=== PATIENT | male | born 1975 | race American Indian/Alaskan Native ===

== ENCOUNTER 2017-06-08 18:48 | Observation (INO) | payer MEDICAID ==
[2017-06-08 18:54] VITALS: BMI 31.0
--- NOTE | 2017-06-08 19:01 | ED PDOC ---
Arrival/HPI - General Time Seen by Provider: 06/08/17 18:49 Historian: Patient - History of Present Illness Narrative History of Present Illness (Text): 06/08/17 18:57 A 42 year old male smoker presents to the emergency department complaining of chest pain for 1 week. Patient reports experiencing intermittent chest pain with palpations since last week. This lasted until 2 days ago, now chest pain is steady. Patient states he has been stressed out recently due to wedding planning. Patient denies of any diaphoresis, vomiting, dizziness, or any other complaints. No PMD Time/Duration: 1 week Symptom Onset: Gradual Symptom Course: Intermittent Associated Symptoms (Text): 06/08/17 19:36 Intermittent chest pain for approximately one week. There've been palpitations. No dyspnea. No diaphoresis. No nausea or vomiting. No dizziness or lightheadedness. The pain is become steady over the last 2 days. No radiation. Patient ran out of his blood pressure medication 1 week ago. Past Medical History - Provider Review Nursing Documentation Reviewed: Yes Family/Social History - Physician Review Nursing Documentation Reviewed: Yes Family/Social History: No Known Family HX Smoking Status: Light Smoker < 10 Cigarettes Daily Hx Alcohol Use: Yes Frequency of alcohol use: Socially Hx Substance Use: No Allergies/Home Meds Allergies/Adverse Reactions: Allergies No Known Allergies Allergy (Verified 06/08/17 18:54) Home Medications: Home Meds Medication Instructions Recorded Confirmed Enalapril/Hydrochlorothiazide 10 mg PO DAILY 06/08/17 06/08/17 [Enalapril-Hctz 10-25 mg Tablet] amLODIPine [Norvasc] 0 mg PO DAILY 06/08/17 06/08/17 Review of Systems - Physician Review All systems were reviewed & negative as marked: Yes - Review of Systems Cardiovascular: Chest Pain, Palpitations Gastrointestinal: absent: Abdominal Pain, Nausea, Vomiting Neurological: absent: Dizziness Endocrine: absent: Diaphoresis Physical Exam Vital Signs Reviewed: Yes Vital Signs Pulse Resp BP Pulse Ox 06/08/17 19:02 77 18 157/108 H 100 Temperature: Afebrile Blood Pressure: Hypertensive Pulse: Regular Respiratory Rate: Normal Appearance: Positive for: Well-Appearing Pain Distress: None Mental Status: Positive for: Alert and Oriented X 3 - Systems Exam Head: Present: Atraumatic, Normocephalic Pupils: Present: PERRL Extroacular Muscles: Present: EOMI Conjunctiva: Present: Normal Mouth: Present: Moist Mucous Membranes Pharnyx: No: ERYTHEMA, EXUDATE, TONSILS ENLARGED Neck: Present: Normal Range of Motion Respiratory/Chest: Present: Clear to Auscultation, Good Air Exchange. No: Respiratory Distress, Accessory Muscle Use, Tender to Palpation Cardiovascular: Present: Regular Rate and Rhythm, Normal S1, S2. No: Murmurs Abdomen: Present: Normal Bowel Sounds. No: Tenderness, Distention, Peritoneal Signs Back: Present: Normal Inspection Upper Extremity: Present: Normal Inspection. No: Cyanosis, Edema Lower Extremity: Present: Normal Inspection. No: Edema Neurological: Present: GCS=15, CN II-XII Intact, Speech Normal, Motor Func Grossly Intact Skin: Present: Warm, Dry, Normal Color. No: Rashes Psychiatric: Present: Alert, Oriented x 3, Normal Insight, Normal Concentration Medical Decision Making ED Course and Treatment: 06/08/17 19:04 Impression: 42 year old male with chest pain. Normal physical exam. Plan: -- EKG -- Chest X-ray -- Labs -- Urinalysis -- Aspirin -- Nitrostat -- Reassess and disposition Progress Notes: 06/08/17 19:37 EKG shows normal sinus rhythm rate approximately [address] or T-wave changes 06/08/17 19:54 Discussed with the medical research tech. Patient will be admitted to telemetry on the hospitalist service. - Lab Interpretations Lab Results: 06/08/17 19:00 06/08/17 19:00 Lab Results 06/08/17 19:00: Sodium 141, Potassium 3.9, Chloride 106, Carbon Dioxide 26, Anion Gap 13, BUN 14, Creatinine 1.0, Est GFR ( Amer) > 60, Est GFR (Non- Af Amer) > 60, Random Glucose 84, Calcium 9.7, Magnesium 1.9, Total Bilirubin 0.7, AST 49, ALT 47, Alkaline Phosphatase 70, Lactate Dehydrogenase 456, Total Creatine Kinase 405 H, CK-MB (CK-2) 3.7 H, CK-MB (CK-2) % 0.9 L, Troponin I 0.02 , Total Protein 7.5, Albumin 4.4, Globulin 3.1, Albumin/Globulin Ratio 1.4 06/08/17 19:00: WBC 7.0, RBC 3.96, Hgb 13.0 L, Hct 37.6 L, MCV 94.9, MCH 32.8, MCHC 34.6, RDW 13.9, Plt Count 270, MPV 9.4, Gran % 70.6 H, Lymph % (Auto) 21.6 L, Zapata % (Auto) 5.9, Eos % (Auto) 1.6, Baso % (Auto) 0.3, Gran # 4.94, Lymph # 1.5, Zapata # 0.4, Eos # 0.1, Baso # 0.02 I have reviewed the lab results: Yes - RAD Interpretation Radiology Orders: 06/08/17 18:56 CHEST PORTABLE [RAD] Stat Chest 1 view shows no infiltrate effusion or cardiomegaly Public Health Director: ED Physician - Medication Orders Current Medication Orders: Discontinued Medications Aspirin (Aspirin) 325 mg PO STAT STA Stop: 06/08/17 18:57 Last Admin: 06/08/17 19:08 Dose: 325 mg Nitroglycerin (Nitrostat Sl Tab) 0.4 mg SL STAT STA Stop: 06/08/17 18:57 Last Admin: 06/08/17 19:09 Dose: 0.4 mg Nitroglycerin (Nitro-Bid 2% Oint) 1 ea TOP STAT STA Stop: 06/08/17 19:39 Last Admin: 06/08/17 19:43 Dose: 1 ea - Scribe Statement The provider has reviewed the documentation as recorded by the Sravan Metzger Provider Scribe Attestation: All medical record entries made by the Shainaibminerva were at my direction and personally dictated by me. I have reviewed the chart and agree that the record accurately reflects my personal performance of the history, physical exam, medical decision making, and the department course for this patient. I have also personally directed, reviewed, and agree with the discharge instructions and disposition. Disposition/Present on Arrival - Present on Arrival Any Indicators Present on Arrival: No History of DVT/PE: No History of Uncontrolled Diabetes: No Urinary Catheter: No History of Decub. Ulcer: No - Disposition Have Diagnosis and Disposition been Completed?: Yes Diagnosis: Chest pain, Hypertension Disposition: HOSPITALIZED Disposition Time: 19:55 Patient Plan: Observation, Telemetry Patient Problems: Current Active Problems Problem Status Onset Chest pain Acute Hypertension Acute Condition: GOOD Discharge Instructions (ExitCare): Chest Pain (ED) Referrals: Lalita Lee MD [Primary Care Provider] - Follow up with primary
[2017-06-08 19:30] LABS: ALB/GLOB RATIO 1.4 (1.1-1.8); ALKALINE PHOSPHATASE 70 U/L (38-126); ALT/SGPT 47 U/L (7-56); AST/SGOT 49 U/L (17-59); BILIRUBIN,TOTAL 0.7 mg/dL (0.2-1.3); BLOOD UREA NITROGEN 14 mg/dL (7-21); CALCIUM 9.7 mg/dL (8.4-10.5); CARBON DIOXIDE 26 mmol/L (21-33); CHLORIDE 106 mmol/L (98-107); GFR AFRICAN-AMERICAN > 60; GLUCOSE,RANDOM 84 mg/dL (70-110); MAGNESIUM 1.9 mg/dL (1.7-2.2); POTASSIUM 3.9 mmol/L (3.6-5.0); SODIUM 141 mmol/L (132-148); TOTAL PROTEIN 7.5 g/dL (5.8-8.3)
[2017-06-08 19:34] LABS: BASO # 0.02 K/mm3 (0.0-2.0); BASO % 0.3 % (0.0-3.0); EOS # 0.1 (0.0-0.7); EOS % 1.6 % (1.5-5.0); GRAN # 4.94 (1.4-6.5); GRAN % 70.6 % (50.0-68.0); HEMATOCRIT 37.6 % (42.0-52.0); LYMPH # 1.5 (1.2-3.4); LYMPH % 21.6 % (22.0-35.0); MEAN CELL VOLUME 94.9 fl (80.0-105.0); MEAN CORPUSCULAR HEMOGLOBIN 32.8 pg (25.0-35.0); MEAN CORPUSCULAR HGB CONC 34.6 g/dl (31.0-37.0); MEAN PLATELET VOLUME 9.4 fl (7.0-11.0); MONO # 0.4 (0.1-0.6); MONO % 5.9 % (1.0-6.0); RED CELL DISTRIBUTION WIDTH 13.9 % (11.5-14.5)
[2017-06-08] MEDS ORDERED: Nitroglycerin 2% Ointment Foilpak UD TOP STA (19:38)
[2017-06-08 19:41] LABS: TROPONIN I 0.02 ng/mL
[2017-06-08 20:05] LABS: PH,URINE 5.5 (4.7-8.0); URINE BILIRUBIN NEGATIVE (NEGATIVE); URINE BLOOD TRACE-INTACT (NEGATIVE); URINE GLUCOSE (UA) NEGATIVE (NEGATIVE); URINE KETONE NEGATIVE (NEGATIVE); URINE LEUKOCYTE ESTERASE NEGATIVE Leu/uL (NEGATIVE); URINE PROTEIN NEGATIVE mg/dL (<30 mg/dL); URINE UROBILINOGEN 0.2 E.U./dL (<1 E.U./dL)
[2017-06-08 20:14] LABS: URINE APPEARANCE CLEAR (CLEAR); URINE COLOR YELLOW (YELLOW)
[2017-06-08 20:16] LABS: URINE BACTERIA FEW (NEG); URINE WBC 0 - 2 /hpf (0-6)
[2017-06-08] MEDS ORDERED: Nitroglycerin 0.2 mg/hr Top Patch TD PRN (21:40)
[2017-06-08] MEDS ORDERED: Morphine 2 mg/ml ISec IVP STA (21:49)
--- NOTE | 2017-06-08 22:35 | CP.PCM.HP ---
<VARSHA DRISCOLL - Last Filed: 06/09/17 05:48> History of Present Illness - History of Present Illness History of Present Illness: Varsha Driscoll, PGY1, H&P for Dr. Morse: CC: chest pain HPI: 42M with PMH HTN, presents for left sided chest pain x 1 week. It started at rest, lasting few mins at a time, with associated fluttering in chest, denies radiation, sob, fainting/dizziness/syncope, n/v, abdominal pain, diaphoresis, weakness. Pt had a previous [place] of such cp, [place] [facility] [place] 24hr holter monitor were normal. In ED, pt afebrile , hypertensive 157/108, trop negx1, ck mb 3.7, EKG shows HR 75, NSR, possible L atrial enlargement. Received NTGx2, ASA 325 mgx1, morphine 2 mg x1. Currently, pt denies any cp, sob, feeling better since arrival. PMD: Dr. Gregory Canales in [place] PMH: HTN [place]v [place] [facility] [place] for chest pain, normal stress test, 24 hor holter monitor. DX with HTN. No cardiac cath done at the time. PSH: Left lower leg laser vein removal (for spider veins), cholecystectomy (2006 ) All: NKA FH: Mother, HTN, CAD, DM, glaucoma CVA, HTN run in family SH: lives with daughter, single parent, at home. umemployed, in a legal dangelo with previous employer, Denies alcohol use currently, last used 01/2017- drinks a glass wine daily prior to that); occasional tobacco user - previously used to smoke 1/2 ppd x 6-7 years. Previous marijuana user. Denies drug use currently. Meds: amlodipine 10 mg PO daily, Enalapril-HCTZ 10-25 mg PO daily Present on Admission - Present on Admission Any Indicators Present on Admission: No History of DVT/PE: No History of Uncontrolled Diabetes: No Urinary Catheter: No Decubitus Ulcer Present: No History Surgical Site Infection Following: None Review of Systems - Review of Systems All systems: reviewed and no additional remarkable complaints except Review of Systems: as per HPI Past Patient History - Infectious Disease Hx of Infectious Diseases: None - Past Social History Smoking Status: Light Smoker < 10 Cigarettes Daily - CARDIAC Hx Cardiac Disorders: Yes Hx Hypertension: Yes - PULMONARY Hx Respiratory Disorders: No - NEUROLOGICAL Hx Neurological Disorder: No - HEENT Hx HEENT Problems: No - RENAL Hx Chronic Kidney Disease: No - ENDOCRINE/METABOLIC Hx Endocrine Disorders: No - HEMATOLOGICAL/ONCOLOGICAL Hx Blood Disorders: No - INTEGUMENTARY Hx Dermatological Problems: No - MUSCULOSKELETAL/RHEUMATOLOGICAL Hx Musculoskeletal Disorders: No - GASTROINTESTINAL Hx Gastrointestinal Disorders: No - GENITOURINARY/GYNECOLOGICAL Hx Genitourinary Disorders: No - PSYCHIATRIC Hx Substance Use: No - SURGICAL HISTORY Hx Surgeries: Yes Hx Cholecystectomy: Yes Other/Comment: veins stripped in R leg - ANESTHESIA Hx Anesthesia: Yes Hx Anesthesia Reactions: No Meds Allergies/Adverse Reactions: Allergies Allergy/AdvReac Type Severity Reaction Status Date / Time No Known Allergies Allergy Verified 06/08/17 18:54 Physical Exam - Constitutional Appears: No Acute Distress, Older Than Stated Age - Head Exam Head Exam: ATRAUMATIC, NORMOCEPHALIC - Eye Exam Eye Exam: EOMI, PERRL. absent: Conjunctival injection, Scleral icterus Pupil Exam: NORMAL ACCOMODATION, PERRL. absent: Irregular, Unequal - ENT Exam ENT Exam: Mucous Membranes Moist - Neck Exam Neck exam: Positive for: Normal Inspection. Negative for: Lymphadenopathy, Thyromegaly - Respiratory Exam Respiratory Exam: Clear to Auscultation Bilateral, NORMAL BREATHING PATTERN. absent: Accessory Muscle Use, Rales, Rhonchi, Wheezes - Cardiovascular Exam Cardiovascular Exam: RRR, +S1, +S2. absent: Bradycardia, Tachycardia, Systolic Murmur - GI/Abdominal Exam GI & Abdominal Exam: Normal Bowel Sounds, Soft. absent: Guarding, Tenderness - Extremities Exam Extremities exam: Positive for: normal inspection, pedal pulses present. Negative for: calf tenderness, pedal edema - Back Exam Back exam: absent: CVA tenderness (L), CVA tenderness (R) - Neurological Exam Neurological exam: Alert, Oriented x3 - Psychiatric Exam Psychiatric exam: Normal Affect, Normal Mood - Skin Skin Exam: Dry, Warm Results - Vital Signs Recent Vital Signs: Last Vital Signs Temp 98.0 F 06/08/17 20:14 Pulse 72 06/08/17 21:31 Resp 16 06/08/17 21:31 BP 157/90 H 06/08/17 21:31 Pulse Ox 99 06/08/17 21:31 - Labs Result Diagrams: 06/09/17 03:38 06/09/17 03:38 Assessment & Plan - Assessment and Plan (Free Text) Assessment: 42M with PMH HTN, admitted for chest pain, r.o ACS, and arrythmia monitoring. Plan: Chest pain, rule out ACS: - Initial trop neg, CK mb 3.7 - EKG shows HR 75, NSR, Possible left atrial enlargement. - f/u serial trops with EKG - F/u lipid panel - start NTG patch, ASA 81 mg PO daily, Lipitor, Tyneol prn pain - C/w home anti HTN med, hold if SBP<120 - F/u cardio c/s Dr Padron recs - Start heart healthy diet Fluttering: - Rule out afib vs any other cardiac arrhythmia - On Tele monitoring x at least 24h - F/u cardio recs Hx of HTN: - C/w home med amlodipine 10 mg PO daily and hctz 12.5 mg PO daily Discussed with attending Varsha Driscoll PGY1 - Date & Time Date: 06/09/17 Time: 05:57 <Sy Morse - Last Filed: 06/10/17 08:52> Results - Vital Signs Recent Vital Signs: Last Vital Signs Temp 98.6 F 06/09/17 05:56 Pulse 54 L 06/09/17 09:55 Resp 22 06/09/17 05:56 BP 133/80 06/09/17 12:00 Pulse Ox 100 06/09/17 05:56 - Labs Result Diagrams: 06/09/17 03:38 06/09/17 03:38 Labs: Laboratory Results - last 24 hr 06/09/17 06/09/17 11:20 11:20 Lactate Dehydrogenase 402 Total Creatine Kinase 311 H CK-MB (CK-2) 2.5 CK-MB (CK-2) % Cancelled Troponin I 0.03 Triglycerides 81 Cholesterol 150 LDL Cholesterol Direct 86 HDL Cholesterol 43 TSH 3rd Generation 0.80 Attending/Attestation - Attestation I have personally seen and examined this patient.: Yes I have fully participated in the care of the patient.: Yes I have reviewed all pertinent clinical information: Yes Notes (Text): 06/10/17 08:51 Patient was seen when he was in -02. Agree with history, physical examination , assessment and plan.
[2017-06-08 22:53] VITALS: O2SAT 100
[2017-06-09 03:46] LABS: HEMATOCRIT 36.5 % (42.0-52.0); MEAN CELL VOLUME 95.3 fl (80.0-105.0); MEAN CORPUSCULAR HEMOGLOBIN 32.4 pg (25.0-35.0); WHITE BLOOD COUNT 5.9 10^3/ul (4.5-11.0)
[2017-06-09 03:47] LABS: BASO % 0.3 % (0.0-3.0); EOS % 4.5 % (1.5-5.0); GRAN # 3.13 (1.4-6.5); GRAN % 52.8 % (50.0-68.0); MEAN PLATELET VOLUME 8.6 fl (7.0-11.0); MONO # 0.5 (0.1-0.6); MONO % 8.4 % (1.0-6.0)
[2017-06-09 03:48] LABS: BASO # 0.02 K/mm3 (0.0-2.0); EOS # 0.3 (0.0-0.7)
[2017-06-09 03:54] LABS: ALB/GLOB RATIO 1.2 (1.1-1.8); ALKALINE PHOSPHATASE 56 U/L (38-126); ALT/SGPT 44 U/L (7-56); AST/SGOT 37 U/L (17-59); BILIRUBIN,TOTAL 0.5 mg/dL (0.2-1.3); BLOOD UREA NITROGEN 13 mg/dL (7-21); CALCIUM 9.1 mg/dL (8.4-10.5); CARBON DIOXIDE 26 mmol/L (21-33); CHLORIDE 108 mmol/L (98-107); CHOLESTEROL 140 mg/dL (130-200); GFR AFRICAN-AMERICAN > 60; GLUCOSE,RANDOM 105 mg/dL (70-110); MAGNESIUM 1.9 mg/dL (1.7-2.2); POTASSIUM 3.7 mmol/L (3.6-5.0); SODIUM 141 mmol/L (132-148); TOTAL PROTEIN 6.5 g/dL (5.8-8.3)
[2017-06-09 04:05] LABS: TROPONIN I 0.03 ng/mL
[2017-06-09 05:57] VITALS: RESP 22; TEMP 98.6
--- NOTE | 2017-06-09 08:17 | RAD ---
HISTORY: cp COMPARISON: Chest x-ray performed 06/08/17 TECHNIQUE: Chest, one view. FINDINGS: LUNGS: Mild right patchy opacity at the right lung base may reflect atelectasis or developing pneumonia. Linear atelectasis, right upper lobe. Please note that chest x-ray has limited sensitivity for the detection of pulmonary masses. PLEURA: No significant pleural effusion identified. No definite pneumothorax . CARDIOVASCULAR: Heart size appears within normal limits. Tortuous aorta. OSSEOUS STRUCTURES: No acute osseous abnormality identified. VISUALIZED UPPER ABDOMEN: Unremarkable. OTHER FINDINGS: None. IMPRESSION: Mild right patchy opacity at the right lung base may reflect atelectasis or developing pneumonia. Linear atelectasis, right upper lobe. Study has been marked for PA review.
--- NOTE | 2017-06-09 08:58 | CARD ---
APPROVED REPORT EKG Measurement Heart [id number] <Conclusion> Normal sinus rhythm Possible Left atrial enlargement Borderline ECG
[2017-06-09] MEDS: Enoxaparin 30 mg Syringe SC SCH ×2 (09:56→13:03)
--- NOTE | 2017-06-09 09:59 | CP.PCM.DIS ---
<Dana Rosario - Last Filed: 06/09/17 13:53> Provider - Provider Date of Admission: 06/08/17 20:58 Attending physician: Brittney Fitzgerald MD Primary care physician: Lalita Lee Time Spent in preparation of Discharge (in minutes): 40 Hospital Course - Lab Results Lab Results: Most Recent Lab Values WBC 5.9 10^3/ul (4.5-11.0) 06/09/17 03:38 RBC 3.83 10^6/uL (3.5-6.1) 06/09/17 03:38 Hgb 12.4 g/dL (14.0-18.0) L 06/09/17 03:38 Hct 36.5 % (42.0-52.0) L 06/09/17 03:38 MCV 95.3 fl (80.0-105.0) 06/09/17 03:38 MCH 32.4 pg (25.0-35.0) 06/09/17 03:38 MCHC 34.0 g/dl (31.0-37.0) 06/09/17 03:38 RDW 14.0 % (11.5-14.5) 06/09/17 03:38 Plt Count 224 10^3/uL (120.0-450.0) 06/09/17 03:38 MPV 8.6 fl (7.0-11.0) 06/09/17 03:38 Gran % 52.8 % (50.0-68.0) 06/09/17 03:38 Lymph % (Auto) 34.0 % (22.0-35.0) 06/09/17 03:38 [place] % (Auto) 8.4 % (1.0-6.0) H 06/09/17 03:38 Eos % (Auto) 4.5 % (1.5-5.0) 06/09/17 03:38 Baso % (Auto) 0.3 % (0.0-3.0) 06/09/17 03:38 Gran # 3.13 (1.4-6.5) 06/09/17 03:38 Lymph # 2.0 (1.2-3.4) 06/09/17 03:38 [place] # 0.5 (0.1-0.6) 06/09/17 03:38 Eos # 0.3 (0.0-0.7) 06/09/17 03:38 Baso # 0.02 K/mm3 (0.0-2.0) 06/09/17 03:38 Sodium 141 mmol/L (132-148) 06/09/17 03:38 Potassium 3.7 mmol/L (3.6-5.0) 06/09/17 03:38 Chloride 108 mmol/L (98-107) H 06/09/17 03:38 Carbon Dioxide 26 mmol/L (21-33) 06/09/17 03:38 Anion Gap 11 (10-20) 06/09/17 03:38 BUN 13 mg/dL (7-21) 06/09/17 03:38 Creatinine 1.0 mg/dL (0.5-1.4) 06/09/17 03:38 Est GFR ( Amer) > 60 06/09/17 03:38 Est GFR (Non-Af Amer) > 60 06/09/17 03:38 Random Glucose 105 mg/dL (70-110) 06/09/17 03:38 Calcium 9.1 mg/dL (8.4-10.5) 06/09/17 03:38 Phosphorus 4.0 mg/dL (2.5-4.5) 06/09/17 03:38 Magnesium 1.9 mg/dL (1.7-2.2) 06/09/17 03:38 Total Bilirubin 0.5 mg/dL (0.2-1.3) 06/09/17 03:38 AST 37 U/L (17-59) 06/09/17 03:38 ALT 44 U/L (7-56) 06/09/17 03:38 Alkaline Phosphatase 56 U/L (38-126) 06/09/17 03:38 Lactate Dehydrogenase 362 U/L (333-699) 06/09/17 03:38 Total Creatine Kinase 387 U/L (35-230) H 06/09/17 03:38 CK-MB (CK-2) 3.1 ng/mL (0.0-3.6) 06/09/17 03:38 CK-MB (CK-2) % Cancelled 06/08/17 19:00 Troponin I 0.03 ng/mL D 06/09/17 03:38 Total Protein 6.5 g/dL (5.8-8.3) 06/09/17 03:38 Albumin 3.6 g/dL (3.0-4.8) 06/09/17 03:38 Globulin 2.9 gm/dL 06/09/17 03:38 Albumin/Globulin Ratio 1.2 (1.1-1.8) 06/09/17 03:38 Triglycerides 64 mg/dL (35-160) 06/09/17 03:38 Cholesterol 140 mg/dL (130-200) 06/09/17 03:38 LDL Cholesterol Direct 84 mg/dL (0-129) 06/09/17 03:38 HDL Cholesterol 41 mg/dL (29-60) 06/09/17 03:38 Urine Color Yellow (YELLOW) 06/08/17 19:56 Urine Appearance Clear (CLEAR) 06/08/17 19:56 Urine pH 5.5 (4.7-8.0) 06/08/17 19:56 Ur Specific [place] 1.015 (1.005-1.035) 06/08/17 19:56 Urine Protein Negative mg/dL (<30 mg/dL) 06/08/17 19:56 Urine Glucose (UA) Negative mg/dL (NEGATIVE) 06/08/17 19:56 Urine Ketones Negative mg/dL (NEGATIVE) 06/08/17 19:56 Urine Blood Trace-intact (NEGATIVE) H 06/08/17 19:56 Urine Nitrate Negative (NEGATIVE) 06/08/17 19:56 Urine Bilirubin Negative (NEGATIVE) 06/08/17 19:56 Urine Urobilinogen 0.2 E.U./dL (<1 E.U./dL) 06/08/17 19:56 Ur Leukocyte Esterase Negative [place]/uL (NEGATIVE) 06/08/17 19:56 Urine RBC 1 - 3 /hpf (0-2) 06/08/17 19:56 Urine WBC 0 - 2 /hpf (0-6) 06/08/17 19:56 Ur Epithelial Cells None /hpf (0-5) 06/08/17 19:56 Urine Bacteria Few (NEG) 06/08/17 19:56 Urine Opiates Screen Negative (NEGATIVE) 06/08/17 19:56 Urine Methadone Screen Negative (NEGATIVE) 06/08/17 19:56 Ur Barbiturates Screen Negative (NEGATIVE) 06/08/17 19:56 Ur Phencyclidine Scrn Negative (NEGATIVE) 06/08/17 19:56 Ur Amphetamines Screen Negative (NEGATIVE) 06/08/17 19:56 U Benzodiazepines Scrn Negative (NEGATIVE) 06/08/17 19:56 U Oth Cocaine Metabols Negative (NEGATIVE) 06/08/17 19:56 U Cannabinoids Screen Negative (NEGATIVE) 06/08/17 19:56 - Hospital Course Hospital Course: 42M with PMHx of HTN, presents for left sided chest pain x 1 week. It started at rest, lasting a few mins at a time, with associated fluttering in chest in the ED. Patient was admitted for observation to rule out ACS. Pt afebrile, trop negx3, ck mb 3.1, EKG shows HR 75, NSR, possible L atrial enlargement. TSH was normal. Received NTGx2, ASA 325 mgx1, morphine 2 mg x1. Patients symptoms have resolved. Echo shows normal LV size and systolic function (EF of 59%). CXR read mild right patchy opacity at the right lung base may reflect atelectasis or developing pneumonia. Linear atelectasis, right upper lobe. Patient will be sent home with his home prescribed medications of Norvasc and enalapril/HCTZ. Patient has been advised to stop smoking, follow up with his PMD, schedule a cardiology appointment for outpatient stress test and to continue his BP medications. Patient is agreeable to plan and medications. Patient has been seen, reviewed, and examined with Attending. Dana Rosario PGY-1 - Date & Time of H&P Date of H&P: 06/09/17 Time of H&P: 12:00 Discharge Exam - Head Exam Head Exam: ATRAUMATIC, NORMOCEPHALIC - Eye Exam Eye Exam: EOMI, Normal appearance - ENT Exam ENT Exam: Mucous Membranes Moist - Respiratory Exam Respiratory Exam: Clear to PA & Lateral, NORMAL BREATHING PATTERN, UNREMARKABLE - Cardiovascular Exam Cardiovascular Exam: RRR, +S1, +S2 - GI/Abdominal Exam GI & Abdominal Exam: Normal Bowel Sounds, Soft. absent: Organomegaly, Tenderness - Neurological Exam Neurological exam: Oriented x3 - Psychiatric Exam Psychiatric exam: Normal Affect, Normal Mood - Skin Skin Exam: Dry, Intact, Normal Color, Warm Discharge Plan - Discharge Medications Prescriptions: amLODIPine [Norvasc] 5 mg PO DAILY #30 Enalapril/Hydrochlorothiazide [Enalapril-Hctz 10-25 mg Tablet] 1 tab PO DAILY # 30 - Follow Up Plan Condition: GOOD Disposition: HOME/ ROUTINE Instructions: Chest Pain (DC), Chest Pain (GEN), Heart Healthy Diet (DC), Heart Healthy Diet (GEN) Additional Instructions: Please continue to take our blood pressure medications daily Follow up with primary physician in 1-2 weeks Schedule appointment with Tow Truck Driver for outpatient stress test within 1 week. Please work on decreasing smoking, and eventually quitting. Referrals: Lalita Lee MD [Primary Care Provider] - <Todd OWEN,[email or web address] - Last Filed: 06/09/17 15:38> Provider - Provider Date of Admission: 06/08/17 20:58 Attending physician: Brittney Fitzgerald MD Primary care physician: [facility] Course - Lab Results Lab Results: Most Recent Lab Values WBC 5.9 10^3/ul (4.5-11.0) 06/09/17 03:38 RBC 3.83 10^6/uL (3.5-6.1) 06/09/17 03:38 Hgb 12.4 g/dL (14.0-18.0) L 06/09/17 03:38 Hct 36.5 % (42.0-52.0) L 06/09/17 03:38 MCV 95.3 fl (80.0-105.0) 06/09/17 03:38 MCH 32.4 pg (25.0-35.0) 06/09/17 03:38 MCHC 34.0 g/dl (31.0-37.0) 06/09/17 03:38 RDW 14.0 % (11.5-14.5) 06/09/17 03:38 Plt Count 224 10^3/uL (120.0-450.0) 06/09/17 03:38 MPV 8.6 fl (7.0-11.0) 06/09/17 03:38 Gran % 52.8 % (50.0-68.0) 06/09/17 03:38 Lymph % (Auto) 34.0 % (22.0-35.0) 06/09/17 03:38 [place] % (Auto) 8.4 % (1.0-6.0) H 06/09/17 03:38 Eos % (Auto) 4.5 % (1.5-5.0) 06/09/17 03:38 Baso % (Auto) 0.3 % (0.0-3.0) 06/09/17 03:38 Gran # 3.13 (1.4-6.5) 06/09/17 03:38 Lymph # 2.0 (1.2-3.4) 06/09/17 03:38 [place] # 0.5 (0.1-0.6) 06/09/17 03:38 Eos # 0.3 (0.0-0.7) 06/09/17 03:38 Baso # 0.02 K/mm3 (0.0-2.0) 06/09/17 03:38 Sodium 141 mmol/L (132-148) 06/09/17 03:38 Potassium 3.7 mmol/L (3.6-5.0) 06/09/17 03:38 Chloride 108 mmol/L (98-107) H 06/09/17 03:38 Carbon Dioxide 26 mmol/L (21-33) 06/09/17 03:38 Anion Gap 11 (10-20) 06/09/17 03:38 BUN 13 mg/dL (7-21) 06/09/17 03:38 Creatinine 1.0 mg/dL (0.5-1.4) 06/09/17 03:38 Est GFR ( Amer) > 60 06/09/17 03:38 Est GFR (Non-Af Amer) > 60 06/09/17 03:38 Random Glucose 105 mg/dL (70-110) 06/09/17 03:38 Calcium 9.1 mg/dL (8.4-10.5) 06/09/17 03:38 Phosphorus 4.0 mg/dL (2.5-4.5) 06/09/17 03:38 Magnesium 1.9 mg/dL (1.7-2.2) 06/09/17 03:38 Total Bilirubin 0.5 mg/dL (0.2-1.3) 06/09/17 03:38 AST 37 U/L (17-59) 06/09/17 03:38 ALT 44 U/L (7-56) 06/09/17 03:38 Alkaline Phosphatase 56 U/L (38-126) 06/09/17 03:38 Lactate Dehydrogenase 402 U/L (333-699) 06/09/17 11:20 Total Creatine Kinase 311 U/L (35-230) H 06/09/17 11:20 CK-MB (CK-2) 2.5 ng/mL (0.0-3.6) 06/09/17 11:20 CK-MB (CK-2) % Cancelled 06/08/17 19:00 Troponin I 0.03 ng/mL 06/09/17 11:20 Total Protein 6.5 g/dL (5.8-8.3) 06/09/17 03:38 Albumin 3.6 g/dL (3.0-4.8) 06/09/17 03:38 Globulin 2.9 gm/dL 06/09/17 03:38 Albumin/Globulin Ratio 1.2 (1.1-1.8) 06/09/17 03:38 Triglycerides 81 mg/dL (35-160) 06/09/17 11:20 Cholesterol 150 mg/dL (130-200) 06/09/17 11:20 LDL Cholesterol Direct 86 mg/dL (0-129) 06/09/17 11:20 HDL Cholesterol 43 mg/dL (29-60) 06/09/17 11:20 TSH 3rd Generation 0.80 mIU/mL (0.46-4.68) 06/09/17 11:20 Urine Color Yellow (YELLOW) 06/08/17 19:56 Urine Appearance Clear (CLEAR) 06/08/17 19:56 Urine pH 5.5 (4.7-8.0) 06/08/17 19:56 Ur Specific [place] 1.015 (1.005-1.035) 06/08/17 19:56 Urine Protein Negative mg/dL (<30 mg/dL) 06/08/17 19:56 Urine Glucose (UA) Negative mg/dL (NEGATIVE) 06/08/17 19:56 Urine Ketones Negative mg/dL (NEGATIVE) 06/08/17 19:56 Urine Blood Trace-intact (NEGATIVE) H 06/08/17 19:56 Urine Nitrate Negative (NEGATIVE) 06/08/17 19:56 Urine Bilirubin Negative (NEGATIVE) 06/08/17 19:56 Urine Urobilinogen 0.2 E.U./dL (<1 E.U./dL) 06/08/17 19:56 Ur Leukocyte Esterase Negative [place]/uL (NEGATIVE) 06/08/17 19:56 Urine RBC 1 - 3 /hpf (0-2) 06/08/17 19:56 Urine WBC 0 - 2 /hpf (0-6) 06/08/17 19:56 Ur Epithelial Cells None /hpf (0-5) 06/08/17 19:56 Urine Bacteria Few (NEG) 06/08/17 19:56 Urine Opiates Screen Negative (NEGATIVE) 06/08/17 19:56 Urine Methadone Screen Negative (NEGATIVE) 06/08/17 19:56 Ur Barbiturates Screen Negative (NEGATIVE) 06/08/17 19:56 Ur Phencyclidine Scrn Negative (NEGATIVE) 06/08/17 19:56 Ur Amphetamines Screen Negative (NEGATIVE) 06/08/17 19:56 U Benzodiazepines Scrn Negative (NEGATIVE) 06/08/17 19:56 U Oth Cocaine Metabols Negative (NEGATIVE) 06/08/17 19:56 U Cannabinoids Screen Negative (NEGATIVE) 06/08/17 19:56 Attending/Attestation - Attestation I have personally seen and examined this patient.: Yes I have fully participated in the care of the patient.: Yes I have reviewed all pertinent clinical information, including history, physical exam and plan: Yes Notes (Text): 06/09/17 15:35 Patient was seen and examined with medical device engineer. Agreed with resident assessment and plan. 42 M with PMH of HTN, was admitted with history of chest pain, EKG was negative for ischemic changes.Serial troponins are normal. 2D echo showed normal systolic function.Patient was evaluated by cardiology, no further inpatient work up was recommended.Patient will be discharged home and will follow up with cardiology and PCP. Smoking cessation counseling was done prior to discharge. Management plan was discussed in detail with patient Education was provided.
--- NOTE | 2017-06-09 11:00 | CARD ---
APPROVED REPORT EXAM: Two-dimensional and M-mode echocardiogram with Doppler and color Doppler. INDICATION 2D DIMENSIONS IVSd1.6 (0.7-1.1cm)LVDd5.2 (3.9-5.9cm) PWd1.7 (0.7-1.1cm)LVDs3.6 (2.5-4.0cm) FS (%) 31.3 %LVEF (%)59.0 (>50%) M-Mode DIMENSIONS Left Atrium (MM)4.10 (2.5-4.0cm)Aortic Root4.10 (2.2-3.7cm) Aortic Cusp Exc.2.50 (1.5-2.0cm) Aortic Valve AoV Peak Wifktrdz903.0cm/Melissa Peak GR.10mmHg Mitral Valve MV E Mwfhxlcr42.6cm/sMV A Jrsmrqak84.4cm/sE/A ratio1.5 Tricuspid Valve TR Peak [id number]/sRAP [id number] Peak Gr.24mmHg [id number] LEFT VENTRICLE The left ventricle is normal size. There is moderate concentric left ventricular hypertrophy. The left ventricular function is normal. The left ventricular ejection fraction is within the normal range. There is normal LV segmental wall motion. RIGHT VENTRICLE The right ventricle is normal size. The right ventricular systolic function is normal. ATRIA The left atrium is mildly dilated. The right atrium size is normal. The interatrial septum is intact with no evidence for an atrial septal defect. AORTIC VALVE The aortic valve is mildly thickened. No aortic regurgitation is present. There is no aortic valvular stenosis. MITRAL VALVE The mitral valve is normal in structure. Mitral regurgitation is mild. TRICUSPID VALVE The tricuspid valve is normal in structure. There is mild tricuspid regurgitation. PULMONIC VALVE The pulmonary valve is normal in structure. GREAT VESSELS The aortic root is mildly enlarged. The IVC is normal in size and collapses >50% with inspiration. PERICARDIAL EFFUSION There is no pleural effusion. There is no pericardial effusion. <Conclusion> Dilated LA. Mildly dilated proximal aortic root. Normal LV size and systolic function. Moderate concentric LVH. Midl MR and TR.
[2017-06-09 11:57] LABS: TROPONIN I 0.03 ng/mL
[2017-06-09 13:03] VITALS: PULSE 54
[2017-06-09 13:34] VITALS: BP 133/80
[2017-06-09] MEDS ORDERED: Nitroglycerin 0.2 mg/hr Top Patch TD SCH ×2 (22:00)
--- NOTE | 2017-06-10 01:59 | CARD ---
APPROVED REPORT EKG Measurement Heart [id number] <Conclusion> Normal sinus rhythm Normal ECG
--- NOTE | 2017-06-10 02:50 | CON ---
DATE: 06/09/2017 REQUESTING PHYSICIAN: Dr. Fitzgerald. REASON FOR CONSULTATION: Chest pain. HISTORY OF PRESENT ILLNESS: This is a 42-year-old man with a history of hypertension, tobacco abuse, admitted with a chest discomfort. He states he has had intermittent chest discomfort for the past week. He describes some of his discomfort is sharp and at other times, pressure like. He also has associated palpitations. His initial electrocardiogram and blood work were unremarkable. He was last evaluated for coronary artery disease several years ago with a stress test, this was reportedly unremarkable. He does have a history of hypertension and he admits that he has not been compliant with his medications lately as he has had a difficult time getting prescription refills at his physician's office. He apparently spends 3 to 4 hours in the waiting room at times. He believes his cholesterol is normal. He is not diabetic. There is known family history of premature heart disease. He smokes several cigarettes a day and has been trying to quit. PAST SURGICAL HISTORY: Prior history of cholecystectomy as well as left leg laser vein surgery. MEDICATIONS AT HOME: Reportedly include enalapril/hydrochlorothiazide 10/25 mg daily and amlodipine 10 mg daily. ALLERGIES: NONE. SOCIAL HISTORY: He lives with his daughter, is currently unemployed. He drinks rarely. He does smoke several cigarettes a day. FAMILY HISTORY: Father's health history is unknown. Mother has known coronary artery disease and hypertension as well as diabetes. REVIEW OF SYSTEMS: A 10-point review of systems is otherwise unremarkable, states he is fairly active and denies any exertional symptoms. PHYSICAL EXAMINATION: GENERAL: He is a fit-appearing middle-aged man. VITAL SIGNS: His blood pressure is 120/76 with pulse of 60, in sinus; respirations are 14. He is afebrile. HEENT: Head normocephalic and atraumatic. Pupils are equal, reactive to light and accommodation. NECK: Supple. No JVD noted. CHEST: Clear to auscultation and percussion. HEART: PMI normal position. No pathological murmurs, rub or gallops are noted. ABDOMEN: Soft and nontender. Normoactive bowel sounds. EXTREMITIES: No clubbing, cyanosis or edema. SKIN: Warm and dry. PSYCHIATRIC: Normal mood and affect NEUROLOGIC: Alert and oriented x3. No gross motor or sensory is appreciable. DIAGNOSTIC DATA: Electrocardiogram reveals sinus rhythm with possible left atrial abnormality, nonspecific ST-T abnormalities. Echocardiogram was reviewed and this shows evidence of moderate concentric LVH, normal LV size and systolic function with mild mitral and tricuspid regurgitation. White count is 5.9, hemoglobin and hematocrit 12.4 and 36.5 with a platelet count of 224,000. Potassium 3.7, BUN and creatinine 13 and 1.0. Two troponins are negative. Cholesterol 140 with an HDL of 41, LDL of 84 and triglycerides of 64. Toxicology screen was negative. IMPRESSION: 1. Chest pain, unclear if this is cardiac in nature, no clear evidence of acute cardiac ischemia by blood work or electrocardiogram. 2. Hypertension with evidence of left ventricular hypertrophy as end-organ damage with invariable compliance with medications. 3. History of tobacco abuse. 4. Rest of the problems as noted. RECOMMENDATIONS: At this time, he appears stable from a cardiac standpoint for discharge home. He is instructed to return with any chest pain. An outpatient stress test should be arranged. Compliance with his medications and medical followup were emphasized to him. The need for smoking abstinence was strongly encouraged as well. Thank you for this consultation. We will be happy to see him in the future as needed. Nigel Arevalo MD
--- NOTE | 2017-06-11 07:27 | CARD ---
APPROVED REPORT EKG Measurement Heart [id number] <Conclusion> Sinus rhythm with 1st degree AV block Minimal voltage criteria for LVH, may be normal variant Borderline ECG
== END 2017-06-09 14:06 | disposition home or self-care (01) ==
LOC: ED 18:48 → MERGE 20:58 → ERH 20:58 → 2RSO 22:59
PROVIDERS: ADMIT Internal Medicine; ATTEND Internal Medicine
DX: R07.9 Chest pain, unspecified (principal); I11.9 Hypertensive heart disease without heart failure; F17.210 Nicotine dependence, cigarettes, uncomplicated
CPT/HCPCS: 36415; 71010; 80053; 80061; 80324; 80345; 80346; 80349; 80353; 80358; 80361; 81001; 82550; 82553; 83615; 83735; 83992; 84100; 84443; 84484; 85025; 93005; 93306; 96374; 99285; G0378; J2270